=== PATIENT | female | born 1970 | race Caucasian/White ===

== ENCOUNTER 2017-07-11 19:48 | Emergency (ER) | payer SELFPAY ==
[~2017-07-11] VITALS: Ht 170.2 cm; Wt 81.2 kg
[2017-07-11 20:21] VITALS: Ht 170.2 cm; Wt 81.2 kg
[2017-07-11 22:08] VITALS: BP 112/67
== END 2017-07-11 22:08 | disposition home or self-care (01) ==
LOC: ED 19:48
DX: L20.9 Atopic dermatitis, unspecified (principal)